=== PATIENT | female | born 1955 | race Two or more races ===

== ENCOUNTER 2025-08-26 07:21 | Day surgery (SDC) | payer MEDICARE, SELFPAY ==
--- NOTE | 2025-08-25 18:53 | W.PREOPHP ---
Assessment and Plan Assessment and plan (1) Nuclear age-related cataract, right eye: Status: Acute Assessment and plan: Assessment: Visually significant cataract right eye. Plan: Cataract extraction with intraocular lens implant right eye History of Present Illness History of Present Illness Chief Complaint: progressive decreased vision right eye Narrative: The patient is a 69-year-old lady who presented with complaints of progressive decreased vision in her right eye at both distance and near, particularly distance. She has significant difficulties with glare and driving at night. She has difficulty reading a newspaper and other fine print. Review of Systems All systems reviewed & are unremarkable except as noted in HPI and below PFSH All Active Problems Nuclear age-related cataract, right eye (Acute) Medical History Floaters in visual field Hypothyroidism Rheumatoid arthritis Surgical History History of dermoid cyst excision Social History Smoking/Tobacco Use Status: Never Smoking risk assessment performed?: Yes Alcohol Intake: current Alcohol Intake frequency: a few times a month Drug use: Never Substance use type: does not use Housing: house Do you feel safe at home: Yes Do you feel safe in your relationship?: Yes Meds Allergies and Home Medications Allergies Allergy/AdvReac Type Severity Reaction Status Date / Time Penicillins Allergy Unknown Unknown Verified 08/26/25 07:37 Home Medications Medication Instructions Recorded Confirmed Type thyroid (pork) 30 mg tablet 30 mg PO DAILY 08/25/25 08/26/25 History ([place] Thyroid) Exam Eyes Other: Uncorrected distance visual acuity measures 20/200 OD, 20/30 OS. Extraocular agility is normal. Intraocular pressures 11 OU. Slit-lamp examination is significant for 3++ nuclear sclerosis in the right eye. The left eye has 2-3+ nuclear sclerosis. Dilated funduscopic examination shows disc cupping of 0.4 OU with normal vessels, macula, peripheral retina and vitreous in the right eye. In the left eye there is diffuse epiretinal membrane in the left macula. Resp Auscultation: clear to auscultation bilaterally Cardio Rate: regular rate Rhythm: regular rhythm
[2025-08-26] MEDS: Tropicam./Phenyleph. (1/2.5%) 5 ML BTL OD ×3 (07:49→08:01)
[2025-08-26 07:51] VITALS: BP 110/74; PULSE 76; RESP 12; TEMP 36.8; O2SAT 97
--- NOTE | 2025-08-26 08:02 | ANES.PREOP_ITS ---
General Info Date of Service Date Performed: 08/26/25 Height: 5 ft 3 in Weight: 66.3 kg Body Mass Index (BMI): 25.9 Surgical Procedure: Operation Date: 08/26/25 09:40 Proposed Procedure Side Surgeon p Cataract Extraction with IOL Implant Right Faustino Kothari MD Meds Allergies and Home Medications Allergies Allergy/AdvReac Type Severity Reaction Status Date / Time Penicillins Allergy Unknown Unknown Verified 08/26/25 07:37 Home Medication Medication Instructions Recorded thyroid (pork) 30 mg tablet 30 mg PO DAILY 08/25/25 ([place] Thyroid) Current Visit Medications: Current Medications Generic Name Dose Route Start Last Admin Trade Name Freq PRN Reason Stop Dose Admin Acetaminophen 1,000 mg 08/26/25 06:00 Acetaminophen 500 Mg Tab PO 09/25/25 05:59 Q4H PRN PRN Balanced Salt Solution 500 ml 08/26/25 06:00 Balanced Salt Soln.-Plus 500 Ml Bag OP 09/25/25 05:59 DIRECTED ROX Miscellaneous Medication 0 ml 08/26/25 06:00 Prednisolone 1%, Moxifloxacin 0.5%, Bromfenac 0.09% 5.6ml Btl OD 09/25/25 05:59 DIRECTED ROX Miscellaneous Medication 0 ml 08/26/25 06:00 08/26/25 08:01 Tropicam./Phenyleph. (1/2.5%) 5 Ml Btl OD 09/25/25 05:59 1 drp DIRECTED ROX Administration Tetracaine HCl 0 ml 08/26/25 06:00 Tetracaine 0.5% 4 Ml Btl OD 09/25/25 05:59 DIRECTED ROX PFSH Active Problems Active Problems: Problem Status Onset Code Nuclear age-related cataract, right eye Acute H25.11 Medical History Medical History Floaters in visual field Hypothyroidism Rheumatoid arthritis Surgical History Surgical History History of dermoid cyst excision Tobacco Smoking/Tobacco Use Status: Never Passive smoking exposure: No Alcohol Alcohol Intake: current Alcohol intake frequency: a few times a month Substance Use Substance use: Never Substance use type: does not use Vital Signs and Lab Results Vital Signs Most Recent Vital Signs in EMR: Most Recent Vital Signs Temp Pulse Resp BP Pulse Ox 36.8 C 76 12 110/74 97 08/26/25 07:51 08/26/25 07:51 08/26/25 07:51 08/26/25 07:51 08/26/25 07:51 Anesthesia Assessment and Plan Anesthesia History Personal History: No History of Anesthesia Complications Family History: No Family History of Anesthesia Complications Exercise Tolerance Exercise Tolerance: Metabolic Equivalents>4 Pertinent Negatives Pertinent Negatives: No Symptoms of GERD, No Major Cardiovascular Symptoms or Complaints and No Major Pulmonary Symptoms or Complaints Cardiac & Pulmonary Exam Cardiac Exam: Normal S1/S2 Heart Sounds Pulmonary Exam: Clear Bilateral Breath Sounds Implantable Cardiac Device Does patient have a Pacemaker or an ICD?: No Airway Exam Known Difficult Airway: No Mallampati Class: 2 Mouth Opening: Normal (> 3cm) Thyromental Distance: Greater than 3 cm Neck Range of Motion: Full ROM Neck Circumference: Normal Teeth Condition: Normal Dentition ASA Classification ASA Score: ASA 2 Emergency Case?: No NPO Status NPO Status: NPO Clears >2 hours, Solids >8 hours Anesthesia Plan Resuscitation Status: Full Code Anesthesia Technique: MAC Anesthesia Airway Planned: Natural Airway Monitors Used: Standard Monitors
[2025-08-26 08:15] VITALS: BMI 25.9
[2025-08-26] MEDS: Duovisc Viscoelastic System EACH 1 EACH (09:05)
[2025-08-26] MEDS: Lidocaine 1% Pres-Free 5 ML VIAL (09:06)
[2025-08-26] MEDS: Moxifloxacin-PF 1 MG/ML VIAL (09:06)
[2025-08-26] MEDS: Povidone-Iodine Ophth 30 ML BTL (09:07)
[2025-08-26] MEDS: Balanced Salt Soln.-PLUS 500 ML BAG OP (09:07)
[2025-08-26] MEDS: Phenylephrine/Lidocaine (15/10) MG/ML 1 ML VIAL (09:07)
[2025-08-26] MEDS: Tetracaine 0.5% 4 ML BTL OD (09:08)
[2025-08-26] MEDS: Prednisolone 1%, Moxifloxacin 0.5%, Bromfenac 0.09% 5.6ML BTL OD (09:08)
[2025-08-26] MEDS: Trypan Blue 0.06% 0.5 ML SYR (09:09)
[2025-08-26 09:33] VITALS: BP 112/76; PULSE 66; RESP 12; TEMP 36.5; O2SAT 98
--- NOTE | 2025-08-26 09:34 | ROE_ITS ---
Operative Note Operative Note PRE-OP DIAGNOSIS: Dense nuclear cataract, right eye POST-OP DIAGNOSIS: same PROCEDURE: Cataract extraction using phacoemulsification with intraocular lens implant, right eye SURGEON: Faustino Kothari ANESTHESIA TYPE: Local By Surgeon and MAC Refer to Anesthesia Record ESTIMATED BLOOD LOSS: 0 PATHOLOGY: none sent COMPLICATIONS: None Patient was transported to: same day Patient's condition: stable Implants: [employer]nis Eyhance [id number] Indications: Progressive visual loss due to cataract, right eye Procedure Description: CATARACT SURGERY OPERATIVE REPORT PREOPERATIVE DIAGNOSIS: 1. Dense nuclear cataract, right eye POSTOPERATIVE DIAGNOSIS: Same OPERATION: 1. Cataract extraction using phacoemulsification with posterior chamber intraocular lens implant, right eye. IOL: IOL Child Development Associate Teacher/Model: [employer] Eyhance DIB00 IOL Power: + 24.0 diopters IOL Serial Number: [id number] Optic Diameter: 6.0mm Haptic/Overall Diameter: 13.0mm PHACO INFO: Gen Whisk (formerly Zypsee)on Vision System with OZil and Active Fluidics Cumulative Dispersed Energy (CDE): 15.20 seconds SURGEON: Faustino Kothari MD, [place] ANESTHESIA: Monitored Anesthesia Care (MAC), with local sub-tenon's anesthetic infiltration COMPLICATIONS: None SPECIMENS: None INDICATIONS FOR PROCEDURE: The patient is a 70-year-old lady with history of progressive decreased vision in her right eye secondary to the development of dense nuclear cataract. She has a long history of natural monovision, but the right eye being more nearsighted than the left.. She has been functioning quite well with refractive error of -4.0 diopters in the right eye, -0.75 in the left. The option of cataract surgery was offered to the patient and she wished to proceed. The goal is to retain monovision, postoperative refractive target is -2.25 to -2.75. She has never worn reading glasses. See office notes for detailed information. PROCEDURE: The correct surgical eye was identified and marked as the right eye and the pupil was dilated in the preoperative area using mydriatics and cycloplegics. The dilated pupil size was 7.0 mm. The patient elected to proceed without oral sedation. The patient was brought to the operating room where cardiopulmonary monitoring was instituted and surgical time-out was performed, confirming the correct operative eye and IOL power. Topical anesthesia was administered and ophthalmic povidone-iodine 5% was instilled into the conjunctival fornices. The gallo-ocular area was prepped with Betadine 10% solution and draped in the usual sterile fashion for intraocular surgery, including an aperture drape. A Tegaderm transparent film dressing was cut in half and used to cover the lashes and lid margins. Care was taken to sequester the lashes and lid margins under the Tegaderm dressing. A lid speculum was placed between the lids of the operative eye and the Gen LuxOR Revalia operating microscope was maneuvered into position. Giovanna scissors were then used to make a conjunctival buttonhole approximately 6mm posterior to the limbus in the inferonasal quadrant. Blunt dissection was carried out to expose bare sclera, and a blunt-tipped sub-tenon’s anesthesia cannula was introduced and passed posteriorly along the globe where non- preserved plain lidocaine was injected into posterior sub-Tenon’s space. A sideport knife was used to make a paracentesis port. VisionBlue was injected into the anterior chamber and allowed to sit for 30 seconds. Intraocular phenylephrine/lidocaine was injected into the anterior chamber. The anterior chamber was filled with viscoelastic. A keratome knife was used to construct a 2-plane clear corneal tunnel extending 2.0mm into clear cornea. A flap was raised on the anterior capsule and capsulorhexis forceps were used to complete a continuous curvilinear capsulorhexis of 5.0 mm. Balanced salt solution was then used to perform cortical cleaving hydrodissection and nuclear hydrodelineation until the lens could be freely rotated within the capsular bag. The lens nucleus was then disassembled and removed within the capsular bag and iris plane using phacoemulsification. Residual cortical material was removed using the I/A handpiece. The posterior capsule was carefully polished to remove as much residual lens epithelial cells as safely possible. The capsular bag was then inflated and the anterior chamber deepened with cohesive viscoelastic. The lens implant described above was inserted into the capsular bag using the Juan and Mayo Simplicity pre- loaded injector. A Kuglen hook was used to dial the IOL into position. Residual viscoelastic was then removed first from posterior to the IOL, then from the anterior chamber using the I/A handpiece. The lens implant was noted to center nicely within the capsular bag. The incisions were stromally hydrated, and the anterior chamber was reformed using BSS. Then 0.5cc of moxifloxacin 1.0mg/ml were injected into the capsular bag and anterior chamber. The incisions were checked with a Weck spear and found to be secure. Several drops of ophthalmic povidone-iodine 5% were then applied to the eye followed by two drops ocombination steroid/NSAID/antibiotic solution. The drapes were removed and a clear plastic protective eye shield was placed over the eye. The patient was then returned to [facility] Day Surgery in stable condition. Date of Procedure: 08/26/25
--- NOTE | 2025-08-26 09:34 | W.PM.DSUDISC ---
Date of service: 08/26/25 Discharge Plan Disposition Patient Disposition: Home Discharge Details Attending Provider: Faustino Kothari Primary Care Provider: No,Local Home Meds and New Rx's Prescriptions: No Action thyroid (pork) [[place] Thyroid] 30 mg tablet 30 mg PO DAILY Patient Comments: TAKE 1 TABLET BY MOUTH EVERY DAY Discharge Instructions Stand Alone Forms: [facility] Post-Op Cataract, Cathleen Rodriguez (DSU), Portal Information Discharge Orders Discharge Orders: Discharge Order (Routine); Ordered 08/26/25 Ordered By: Faustino Kothari DS: Diagnosis Discharge Diagnosis (1) Nuclear age-related cataract, right eye: Status: Resolved
--- NOTE | 2025-08-26 09:54 | W.ANESPOSTOP ---
Postoperative Evaluation Date, Time and Location Date Performed: 08/26/25 Time Performed: 09:33 Patient Location: Day Surgery Unit Vital Signs Most Recent Imported Vital Signs: Most Recent Vital Signs Temp Pulse Resp BP Pulse Ox 36.5 C 66 12 112/76 98 08/26/25 09:33 08/26/25 09:33 08/26/25 09:33 08/26/25 09:33 08/26/25 09:33 Pain Score Most Recent Pain Score: Most Recent Pain Score Pain Level 0 08/26/25 09:33 Assessment Mental Status: Awake (Alert & Oriented to Patient Baseline) Airway and Respiratory Function: Patent airway with normal (patient baseline) respiratory exam Cardiovascular Function: Hemodynamically Stable Hydration Status: Adequately Hydrated Nausea & Vomiting: No Nausea or Vomiting Pain: Pt. Denies Any Pain Peripheral Nerve Block: Patient did not receive a nerve block
== END 2025-08-26 09:53 | disposition home or self-care (01) ==
PROVIDERS: Visit Provider Ophthalmology
PROC: (CPT 66984; principal; 2025-08-26 09:30)
DX: H25.11 Age-related nuclear cataract, right eye (principal)
CPT/HCPCS: 66984; 00123; V2632; J2003